=== PATIENT | male | born 1940 | race African-American/Black ===

== ENCOUNTER 2017-11-08 11:40 | Emergency (ER) | payer OTHER ==
[2017-11-08 12:34] LABS: ADD MAN DIFF? NO
[2017-11-08 12:43] LABS: BASO % 1 % (0-3); EOS # 0.1 x10^3/uL (0.0-0.7); EOS % 2 % (0-3); HEMATOCRIT 28.8 % (39.0-53.0); HEMOGLOBIN 9.6 g/dL (13.0-17.5); LYMPH # 0.9 x10^3/uL (1.0-4.8); LYMPH % 14 % (24-48); MEAN CORPUSCULAR HEMOGLOBIN 24 pg (25-35); MEAN CORPUSCULAR HGB CONC 33 g/dL (31-37); MEAN CORPUSCULAR VOLUME 73 fL (79-100); MONO # 0.6 x10^3/uL (0.0-1.1); MONO % 9 % (0-9); NEUT # 4.6 x10^3uL (1.8-7.7); NEUT % 74 % (31-73); PLATELET COUNT 302 x10^3/uL (140-400); RED BLOOD COUNT 3.94 x10^6/uL (4.30-5.70); RED CELL DISTRIBUTION WIDTH 14.5 % (11.5-14.5); WHITE BLOOD COUNT 6.3 x10^3/uL (4.0-11.0)
[2017-11-08 12:45] LABS: ANION GAP 11 (6-14); BLOOD UREA NITROGEN 16 mg/dL (8-26); BUN/CREATININE RATIO 16 (6-20); CALCIUM 9.5 mg/dL (8.5-10.1); CARBON DIOXIDE 25 mmol/L (21-32); CHLORIDE 99 mmol/L (98-107); GFR 87.9; GLUCOSE 128 mg/dL (70-99); POTASSIUM 4.3 mmol/L (3.5-5.1); SODIUM 135 mmol/L (136-145)
[2017-11-08] MEDS: ONDANSETRON PF 4 MG/2 ML VIAL. IV (12:48)
[2017-11-08 12:51] LABS: ALBUMIN/GLOBULIN RATIO 0.7 (1.0-1.7); ALK PHOS 76 U/L (46-116); ALT (SGPT) 26 U/L (16-63); AST (SGOT) 29 U/L (15-37); TOTAL BILIRUBIN 0.3 mg/dL (0.2-1.0); TOTAL PROTEIN 7.3 g/dL (6.4-8.2)
[2017-11-08] MEDS: fentaNYL PF VIAL 100 MCG/2 ML VIAL IV (12:51)
[2017-11-08 12:55] LABS: INR 4.4 (0.8-1.1); PARTIAL THROMBOPLASTIN TIME 53 SEC (24-38); PROTHROMBIN TIME PATIENT 41.1 SEC (11.7-14.0)
[2017-11-08] MEDS: oxyCODONE/APAP 7.5/325 1 TAB TABLET PO (14:17)
== END 2017-11-08 14:24 | disposition home or self-care (01) ==
LOC: ER 11:40
DX: R79.1 Abnormal coagulation profile (principal); G89.18 Other acute postprocedural pain; Z85.46 Personal history of malignant neoplasm of prostate; Z90.79 Acquired absence of other genital organ(s); Z96.652 Presence of left artificial knee joint; Z79.01 Long term (current) use of anticoagulants
CPT/HCPCS: 36415; 80053; 85025; 85610; 85730; 96374; 96375; 99284-25; J2405; J3010